=== PATIENT | male | born 1970 | race Caucasian/White ===

== ENCOUNTER 2016-08-29 21:08 | Emergency (ER) | payer BC ==
[2016-08-29 21:10] VITALS: BP 137/82; PULSE 88; RESP 20; TEMP 97.9; O2SAT 95
[2016-08-29] MEDS ORDERED: ONDANSETRON HCL 4 MG/2 ML VIAL IVP ONE (22:15)
[2016-08-29] MEDS ORDERED: HYDROmorphone HCL PF 1 MG/ML VIAL IVS ONE (22:15)
[2016-08-29] MEDS ORDERED: SODIUM CHLORIDE 0.9% FLUSH 5 ML FLUSH IVF PRN (22:15)
[2016-08-29 22:23] VITALS: BP 151/104; PULSE 82; RESP 20; O2SAT 95
[2016-08-29] MEDS ORDERED: oxyCODONE/ACETAMINOPHEN 5 MG/325 MG TAB PO ONE (22:30)
--- NOTE | 2016-08-29 22:33 | RADHPO ---
EXAM DATE/TIME: 08/29/2016 22:20 [place] COMPARISON: No previous studies available for comparison. INDICATIONS : Short of breath. MEDICAL HISTORY : Diabetes mellitus type II. SURGICAL HISTORY : Appendectomy. ENCOUNTER: Initial ACUITY: 1 day PAIN SCORE: 7/10 LOCATION: Bilateral chest FINDINGS: PA and lateral views of the chest demonstrate the lungs to be symmetrically aerated without evidence of mass, infiltrate or effusion. The cardiomediastinal contours are unremarkable. Osseous structure s are intact. CONCLUSION: No evidence of acute cardiopulmonary disease. Arvind Hay MD on August 29, 2016 at 22:30 Board Certified Radiologist. This report was verified electronically.
[2016-08-29] MEDS ORDERED: PERC7.5T13 PO (22:42)
--- NOTE | 2016-08-29 22:44 | PD ---
HPI Chief Complaint: Respiratory Symptoms Time Seen by Provider: 22:02 Travel History International Travel<30 days: No Contact w/Intl Traveler<30days: No Traveled to known affect area: No History of Present Illness HPI 46-year-old male arrives complaining of chest pain on the right side in the midaxillary line. He accidentally aspirated a beverage and then experienced a violent coughing episode at which point he believes he may have tore something involving the musculature and/or organs in the region of the right lateral lower thorax along the midaxillary line and posteriorly. The pain is sharp and worse with deep inspiration and coughing yawning and any movement. Standing up seems to mitigate pain severity. Episode began about 5 hours prior to ER arrival. An occasional cough is still experienced however the patient has had no difficulty breathing or fever. PFSH Past Medical History Diabetes: No (Borderline) Diminished Hearing: No Tetanus Vaccination: Unknown Influenza Vaccination: No Past Surgical History Appendectomy: Yes Social History Alcohol Use: Yes (Occasionally) Tobacco Use: Yes (1 ppd) Substance Use: No Allergies-Medications (Allergen,Severity, Reaction): Coded Allergies: Penicillin (Verified Allergy, Unknown, RASH, 08/29/16) Reported Meds & Prescriptions Reported Meds & Active Scripts Active Percocet (Oxycodone-Acetaminophen) 7.5-325 mg Tab 1 Tab PO Q6H PRN Review of Systems Except as stated in HPI: all other systems reviewed are Neg General / Constitutional: No: Fever, Chills Respiratory: Positive: Cough, No: Shortness of Breath Physical Exam Narrative GENERAL: 38-year-old male well-nourished well-developed no acute distress SKIN: Warm and dry. HEAD: Atraumatic. Normocephalic. EYES: Pupils equal and round. No scleral icterus. No injection or drainage. ENT: No nasal bleeding or discharge. Mucous membranes pink and moist. NECK: Trachea midline. No JVD. CARDIOVASCULAR: Regular rate and rhythm. No murmur appreciated. RESPIRATORY: . Breath sounds breath sounds are present bilaterally and clear. There is no tenderness to palpation on exam. GASTROINTESTINAL: Abdomen soft, non-tender, nondistended. Hepatic and splenic margins not palpable. MUSCULOSKELETAL: No obvious deformities. No clubbing. No cyanosis. No edema. NEUROLOGICAL: Awake and alert. No obvious cranial nerve deficits. Motor grossly within normal limits. Normal speech. PSYCHIATRIC: Appropriate mood and affect; insight and judgment normal. Data Data Last Documented VS Vital Signs Date Time Temp Pulse Resp B/P Pulse Ox O2 Delivery O2 Flow Rate FiO2 08/29/16 22:23 82 20 151/104 95 Room Air 08/29/16 21:10 97.9 Vital signs reviewed Orders Chest, Pa & Lat (08/29/16 ) Ondansetron Inj (Zofran Inj) (08/29/16 22:15) Sodium Chloride 0.9% Flush (Ns Flush) (08/29/16 22:15) Hydromorphone Pf Inj (Dilaudid Pf Inj) (08/29/16 22:15) Oxycodone-Acetamin 5-325 Mg (Percocet (08/29/16 22:30) Resp Incentive Spirometry (08/29/16 ) MDM Medical Decision Making Medical Screen Exam Complete: Yes Emergency Medical Condition: Yes Differential Diagnosis NSTEMI, unstable angina, coronary vasospasm, PE, PTX, aortic dissection, pericarditis, myocarditis, endocarditis, PNA, esophageal disease, aneurysm, musculoskeletal etiologies, anxiety, cocaine/sympathomimetic abuse Narrative Course Imaging is unremarkable. Vital signs are normal. The exam is unremarkable.The two-view of the chest x-ray reveals clear costophrenic sulci bilaterally such that effusion and/or hemothorax considered quite unlikely. A musculoskeletal type injury is considered most probable. We will provide Percocet and incentive spirometry. Diagnosis Primary Impression: Rib pain on right side Referrals: DR MEEKS 2 days Additional Instructions: You have a choice when it comes to health care, and we are glad that you chose [facility]. Hopefully, we have met your expectations on today's visit. You are welcome to return to [facility] at any time, as we are committed to meeting the health care needs of our community. Med/Other Pt SpecificInfo: Prescription(s) given Scripts Oxycodone-Acetaminophen (Percocet)7.5-325 mg Tab1 Tab PO Q6H PRN (PAIN SCALE 6 TO 10) #20 TAB Ref 0 Prov:Segundo Suarez MD 08/29/16 Disposition: 01 DISCHARGE HOME Condition: Stable Segundo Suarez MD Aug 29, 2016 22:44
[2016-08-29 23:26] VITALS: BP 134/76; PULSE 71; RESP 20; O2SAT 96
== END 2016-08-29 23:30 | disposition home or self-care (01) ==
LOC: PHED 21:08
DX: R07.81 Pleurodynia (principal); F17.210 Nicotine dependence, cigarettes, uncomplicated
CPT/HCPCS: 71020; 94150; 99283

== ENCOUNTER 2017-04-02 20:16 | Emergency (ER) | payer BC ==
[~2017-04-02] VITALS: Ht 182.9 cm; Wt 152.6 kg
[~2017-04-02 20:16] MED LIST: PERC7.5T13 PO
[2017-04-02 20:20] VITALS: BP 131/69; PULSE 91; RESP 20; TEMP 98.3; O2SAT 97
[2017-04-02] MEDS ORDERED: CEPH-460 PO (20:55)
[2017-04-02] MEDS ORDERED: BACT800T5 PO (20:55)
[2017-04-02] MEDS ORDERED: METF500T PO (20:56)
[2017-04-02] MEDS: ACETAMINOPHEN/HYDROcodone 325 MG/5 MG TAB PO ONE ×2 (21:00→21:35)
--- NOTE | 2017-04-02 21:01 | PD ---
HPI . Left lower extremity redness Chief Complaint: Skin Problem Time Seen by Provider: 20:46 Travel History International Travel<30 days: No Contact w/Intl Traveler<30days: No Traveled to known affect area: No History of Present Illness HPI Patient presents with a one-day history of redness and pain of the left lower extremity. He states this started out as a small red spot earlier today and has gotten rapidly, progressively worse. He reports subjective fever. No modifying factor. PFSH Past Medical History Diabetes: Yes (type 2 ) Diminished Hearing: No Past Surgical History Appendectomy: Yes Social History Alcohol Use: Yes (Occasionally) Tobacco Use: Yes (1 ppd) Substance Use: No Allergies-Medications (Allergen,Severity, Reaction): Coded Allergies: penicillin G (Unverified Allergy, Unknown, RASH, 04/02/17) Reported Meds & Prescriptions Reported Meds & Active Scripts Active Reported Metformin (Metformin HCl) 500 Mg Tab 500 Mg PO BIDPC Review of Systems Except as stated in HPI: all other systems reviewed are Neg General / Constitutional: Positive: Fever Skin: Positive Change in Pigmentation Physical Exam Narrative GENERAL: Awake and alert and in no acute distress. SKIN: Skin of the right lower extremity is red, hot, swollen and tender. The redness does not extend to the foot nor does it extend above the knee. HEAD: Normocephalic/atraumatic. EYES: Pupils are equal. Extraocular movements are intact. NECK: Supple. CARDIOVASCULAR: Regular rate and rhythm. RESPIRATORY: Nonlabored respirations. MUSCULOSKELETAL: Atraumatic. NEUROLOGICAL: Nonfocal. PSYCHIATRIC: Appropriate mood and affect. Data Data Last Documented VS Vital Signs Date Time Temp Pulse Resp B/P (MAP) Pulse Ox O2 Delivery O2 Flow Rate FiO2 04/02/17 20:20 98.3 91 20 131/69 (89) 97 Orders Orders Basic Metabolic Panel (Bmp) (04/02/17 20:46) Complete Blood Count With Diff (04/02/17 20:46) Blood Culture (04/02/17 20:46) Iv Access Insert/Monitor (04/02/17 20:46) Acetamin-Hydrocod 325-5 Mg (Shunk 5-325 (04/02/17 21:00) Cefazolin Inj (Ancef Inj) (04/02/17 21:00) Lactic Acid (10/14/17 20:46) Labs Laboratory Tests Test 04/02/17 21:26 04/02/17 21:30 Lactic Acid Level 1.1 mmol/L White Blood Count 8.0 TH/MM3 Red Blood Count 5.32 MIL/MM3 Hemoglobin 14.9 GM/DL Hematocrit 45.0 % Mean Corpuscular Volume 84.7 FL Mean Corpuscular Hemoglobin 28.1 PG Mean Corpuscular Hemoglobin Concent 33.2 % Red Cell Distribution Width 12.2 % Platelet Count 153 TH/MM3 Mean Platelet Volume 8.0 FL Neutrophils (%) (Auto) 77.4 % Lymphocytes (%) (Auto) 14.3 % Monocytes (%) (Auto) 6.1 % Eosinophils (%) (Auto) 1.9 % Basophils (%) (Auto) 0.3 % Neutrophils # (Auto) 6.2 TH/MM3 Lymphocytes # (Auto) 1.1 TH/MM3 Monocytes # (Auto) 0.5 TH/MM3 Eosinophils # (Auto) 0.2 TH/MM3 Basophils # (Auto) 0.0 TH/MM3 CBC Comment DIFF FINAL Differential Comment Blood Urea Nitrogen 10 MG/DL Creatinine 0.74 MG/DL Random Glucose 231 MG/DL Calcium Level 8.4 MG/DL Sodium Level 133 MEQ/L Potassium Level 3.3 MEQ/L Chloride Level 102 MEQ/L Carbon Dioxide Level 22.4 MEQ/L Anion Gap 9 MEQ/L Estimat Glomerular Filtration Rate 112 ML/MIN MDM Medical Decision Making Medical Screen Exam Complete: Yes Emergency Medical Condition: Yes Differential Diagnosis My differential diagnosis includes but is not limited to localized wound infection, cellulitis, abscess Narrative Course This patient presents with cellulitis of his left lower extremity. I will treat him with Ancef. I have drawn labs including blood cultures and a lactic acid level. CBC & BMP Diagram 04/02/17 21:30 Calcium Level 8.4 L Lactic acid level is normal Diagnosis Primary Impression: Cellulitis Qualified Codes: L03.116 - Cellulitis of left lower limb Patient Instructions: Cellulitis (DC), General Instructions Med/Other Pt SpecificInfo: Prescription(s) given Disposition: 01 DISCHARGE HOME Condition: Stable Makayla Khanna MD Apr 02, 2017 21:01
[2017-04-02 21:40] LABS: AUTOMATED NEUTROPHIL # 6.2 TH/MM3 (1.8-7.7); BASOPHIL % 0.3 % (0.0-2.0); EOSINOPHIL # 0.2 TH/MM3 (0-0.4); EOSINOPHIL % 1.9 % (0.0-4.0); HEMO FLAGS DIFF FINAL; LYMPH % 14.3 % (9.0-44.0); LYMPHOCYTE # 1.1 TH/MM3 (1.0-4.8); MEAN CELL VOLUME 84.7 FL (80.0-100.0); MEAN CORPUSCULAR HEMOGLOBIN 28.1 PG (27.0-34.0); MEAN CORPUSCULAR HGB CONC 33.2 % (32.0-36.0); MONO % 6.1 % (0.0-8.0); NEUT % 77.4 % (16.0-70.0); PLATELET COUNT 153 TH/MM3 (150-450); RED BLOOD COUNT 5.32 MIL/MM3 (4.50-5.90); RED CELL DISTRIBUTION WIDTH 12.2 % (11.6-17.2)
[2017-04-02 21:57] LABS: POTASSIUM 3.3 MEQ/L (3.5-5.1)
[2017-04-02 22:01] LABS: BICARBONATE 22.4 MEQ/L (21.0-32.0)
[2017-04-02 22:28] VITALS: BP 139/79
== END 2017-04-02 22:30 | disposition home or self-care (01) ==
LOC: PHEFT 20:16
DX: L03.116 Cellulitis of left lower limb (principal); E11.9 Type 2 diabetes mellitus without complications; F17.210 Nicotine dependence, cigarettes, uncomplicated; Z79.84 Long term (current) use of oral hypoglycemic drugs; Z88.0 Allergy status to penicillin
CPT/HCPCS: 80048; 83605; 85025; 87040; 96365; 99284; J0690